=== PATIENT | male | born 1985 | race Caucasian/White ===

== ENCOUNTER → 2025-02-27 06:05 | Emergency (ER) | payer OTHER, SELFPAY ==
[2025-02-27 06:11] VITALS: BP 181/106; PULSE 111; RESP 22; TEMP 37.1; O2SAT 96; BMI 27.7
--- NOTE | 2025-02-27 06:14 | ED_ITS ---
HPI - General Adult General Chief complaint: Dental/Oral Stated complaint: SOB, Sore Throat Time Seen by Provider: 02/27/25 06:11 History of Present Illness HPI narrative: 39 year old male complains of 2 days duration sore throat, occasional dry cough, painful swallowing. No injury. Can handle secretions, can move neck, no change in voce quality. Denies left sided tooth problems, has left neck swelling. No hives, no itching, no swelling lips or tongue. Related Data Previous Rx's ?Medication ?Instructions ?Recorded amoxicillin 875 mg tablet 875 mg PO BID dental infecti on 10 02/27/25 days #20 tabs prednisone 20 mg tablet 40 mg (2 x 20 mg) PO DAILY 3 days 02/27/25 #10 tabs Allergies Allergy/AdvReac Type Severity Reaction Status Date / Time No Known Drug Allergies Allergy Verified 02/27/25 06:18 Patient History Social History Smoking Status: Current every day smoker Exam Narrative Exam Narrative: GENERAL: Well-developed patient, in mild distress. HEAD: Atraumatic. Normocephalic. EYES: Pupils equal round and reactive. Extraocular motions intact. No scleral icterus. No injection or drainage. ENT: Nose without bleeding, purulent drainage. Oropharyngeal exam remarkable for large red symmetrical tonsils with exudates. NECK: Trachea midline. Non tender. Moves neck well, normal phonation. CARDIOVASCULAR: Regular rate and rhythm without murmurs, gallops, or rubs. RESPIRATORY: Clear to auscultation. Breath sounds equal bilaterally. No wheezes, rales, or rhonchi. GASTROINTESTINAL: Abdomen soft, non-tender, nondistended. EXTREMITIES: No edema or joint tenderness. BACK: Nontender without deformity or crepitance. No flank tenderness. NEURO: AOx3. Motor functions grossly nonfocal. SKIN: No rash or erythema of visible areas Initial Vital Signs Initial Vital Signs: Vital Signs Temperature 98.8 F 02/27/25 06:11 Pulse Rate 111 H 02/27/25 06:11 Respiratory Rate 22 02/27/25 06:11 Blood Pressure 181/106 H 02/27/25 06:11 Pulse Oximetry 96 02/27/25 06:11 Oxygen Delivery Method Room Air 02/27/25 06:11 Course Orders Ordered: ED Orders 02/27/25 06:28 Strep Grp A by PCR Rapid Stat Throat Culture Stat Discontinued Medications Albuterol (Albuterol 2.5 Mg/3 Ml Neb (Adult)) 2.5 mg INH NOW ONE Stop: 02/27/25 06:13 Last Admin: 02/27/25 06:31 Dose: Not Given Documented By: ARPIT Amoxicillin (Amoxicillin 250 Mg Capsule) 1,000 mg PO NOW ONE Stop: 02/27/25 06:23 Last Admin: 02/27/25 06:30 Dose: 1,000 mg Documented By: ARPIT Prednisone (Prednisone 20 Mg Tablet) 60 mg PO NOW ONE Stop: 02/27/25 06:23 Last Admin: 02/27/25 06:30 Dose: 60 mg Documented By: ARPIT Tramadol HCl (Tramadol 50 Mg Prepack) 1 bottle MISC DIRECTED ONE Stop: 02/27/25 06:34 Last Admin: 02/27/25 06:41 Dose: 1 bottle Documented By: ARPIT Tramadol HCl (Tramadol 50 Mg Tablet) 100 mg PO NOW ONE Stop: 02/27/25 06:36 Last Admin: 02/27/25 06:41 Dose: 100 mg Documented By: ARPIT Vital Signs Vital signs: Vital Signs - 8 hr 02/27/25 06:11 02/27/25 06:46 02/27/25 07:45 Temperature 98.8 F Pulse Rate 111 H 93 H 105 H Respiratory Rate 22 19 17 Blood Pressure 181/106 H 158/93 H 162/99 H Pulse Oximetry 96 94 97 Oxygen Delivery Method Room Air Room Air Room Air Medical Decision Making Lab Data Labs: Lab Results 02/27/25 Range/Units 06:28 Group A Strep (PCR) Negative (Negative) MDM Narrative Medical decision making narrative: Sore throat with exudative tonsillitis on exam, able to swallow moving neck well. We will hold off on advanced imaging for now. Strep screen sent from triage. We will start empiric treatment regardless of strep screen given exudative tonsillitis changes on examination. Oral amoxicillin, oral prednisone. Prescription sent for further amoxicillin and prednisone to his pharmacy. Oral tramadol for additional pain control, also dispensed home pack tramadol to use next 1-2 days if needed. Recheck advised with PCP if not improving in the next couple of days. Return precautions discussed. Discharged home. Discharge Plan Departure Patient Disposition: Home Clinical Impression: Exudative tonsillitis Activity Restrictions/Additional Instructions: Sore throat increasing difficulty swallowing. On examination you have red enlarged tonsils that seems symmetrical at this time, with scant exudative purulent flex both sides. You seemed to be able to moving your neck pretty well. You have anterior cervical lymph nodes as well. You were able to open your jaw and control your secretions and swallow well at this time, with normal phonation voice sounds. We will start antibiotics based on the exudates presence on both erythematous tonsils. First dose amoxicillin given in the emergency department, further course of antibiotic prescription sent to your pharmacy. Steroid prednisone given to help control swelling symptoms, dose given by mouth in the emergency department, prescription for 3 more days sent to your pharmacy. Recheck symptoms with your regular doctor in the next couple of days. Take your antibiotic and steroid courses as prescribed. Drink plenty of fluids. Take Tylenol as needed for pain control. Tramadol home pack given if additional pain relief needed in the short term. Return to this/nearest emergency department for any change worsening symptoms or any concerns prior. Prescriptions: New prednisone 20 mg tablet 40 mg PO DAILY 3 Days Qty: 10 0RF amoxicillin 875 mg tablet 875 mg PO BID 10 Days Qty: 20 0RF Referrals: Andrew Olvera MD [Physician, Ear, Nose, Throat] Stand Alone Forms: Patient Portal/API, Work Release Note
[2025-02-27] MEDS: predniSONE 20 MG TABLET 60 MG PO (06:30)
[2025-02-27] MEDS: AMOXICILLIN 250 MG CAPSULE 1000 MG PO (06:30)
[2025-02-27] MEDS: TRAMADOL 50 MG PREPACK 1 BOTTLE MISC (06:41)
[2025-02-27] MEDS: TRAMADOL 50 MG TABLET 100 MG PO (06:41)
[2025-02-27 06:43] LABS: Strep Grp A by PCR Rapid Negative (Negative)
[2025-02-27 06:46] VITALS: BP 158/93; PULSE 93; RESP 19; O2SAT 94
[2025-02-27 07:45] VITALS: BP 162/99; PULSE 105; RESP 17; O2SAT 97
== END | disposition home or self-care (01) ==
PROVIDERS: Emergency Provider Emergency Medicine
DX: J03.90 Acute tonsillitis, unspecified (principal)
CPT/HCPCS: 87070; 87077; 87147; 87651; 99283

== ENCOUNTER 2025-03-03 01:55 | Emergency (ER) | payer OTHER, SELFPAY ==
[2025-03-03 02:05] VITALS: BP 151/100; PULSE 90; RESP 19; TEMP 36.9; O2SAT 97; BMI 27.7
--- NOTE | 2025-03-03 02:12 | DI.CT.S_ITS ---
PROCEDURE: CT SOFT TISSUE NECK W CON INDICATIONS: neck pain swelling TECHNIQUE: After the administration of intravenous contrast, 3.0 mm axial sections acquired from the sella to the aortic arch. 3 mm thick coronal and sagittal reformats were generated. For radiation dose reduction, the following was used: automated exposure control. COMPARISON: None. FINDINGS: Skull Base: The visualized intracranial contents, skull, and orbits are unremarkable. Visualized paranasal sinuses are clear. Pharynx and Larynx: Bilateral tonsillar hypertrophy and peritonsillar edema noted greater on the left. A suggestion of possible developing abscess on the left is vague and ill-defined measuring to 1.9 cm. Muscles and Fascial Planes: Fascial planes are well maintained. Lymph Nodes: Bulky bilateral inflammatory adenopathy greater on the left measures up to 1.8 cm at level 2A Vasculature: Unremarkable. Submandibular and Parotid Glands: Normal in size and attenuation. Thyroid: Unremarkable. No enlarged or calcified nodules. Bones: No acute fracture. No osteolytic or blastic lesion is evident. Normal bone mineralization. Lung Apices: The visualized lung apices are clear. IMPRESSION: Bilateral tonsillar hypertrophy greater on the left with surrounding peritonsillar edema. There is suggestion of vague possible developing abscess on the left. Associated inflammatory adenopathy. Note: This final report is concordant with the preliminary after-hours interpretation provided by [facility] Approved by: Peter Oliveira M.D. on 03/03/2025 at 8:29
--- NOTE | 2025-03-03 02:12 | ED_ITS ---
HPI - General Adult General Chief complaint: Upper Respiratory Symptoms Stated complaint: Severe tonsillitis. swelling in face and neck Time Seen by Provider: 03/03/25 02:03 History of Present Illness HPI narrative: 39-year-old male seen by me here on 02/27/2025 with exudative tonsillitis, strep screen was negative at that time, patient was given oral amoxicillin dose and prescription for amoxicillin sent to pharmacy. They apparently had trouble with filling the prescription due to lack of insurance company at said pharmacy, had prescription change to a different pharmacy, filled the prescription and took 1st outpatient was today. Increasing throat pain, increasing swelling to the left side. Painful swallowing. No change in voice. Related Data Previous Rx's ?Medication ?Instructions ?Recorded amoxicillin 875 mg tablet 875 mg PO BID dental infecti on 10 02/27/25 days #20 tabs amoxicillin 875 mg-potassium 1 tab PO BID #20 tabs 05/20 clavulanate 125 mg tablet hydrocodone 5 mg-acetaminophen 325 1 tab PO Q6H PRN pa in #10 tabs 03/03/25 mg tablet prednisone 20 mg tablet 60 mg (3 x 20 mg) PO DAILY 5 days 03/03/25 #15 tabs Allergies Allergy/AdvReac Type Severity Reaction Status Date / Time No Known Drug Allergies Allergy Verified 03/03/25 02:22 Patient History Social History Smoking Status: Current every day smoker Exam Narrative Exam Narrative: GENERAL: Well-developed patient, in mild distress. HEAD: Atraumatic. Normocephalic. EYES: Pupils equal round and reactive. Extraocular motions intact. No scleral icterus. No injection or drainage. ENT: Oropharynx with fgwu-[id number]-lfwb-right tonsillar redness, occasional flecks of purulent material seems decreased from previous visit. No palatal or uvular edema. Opens mouth well. Normal phonation. Some left submandibular area swelling non fluctuant. NECK: Trachea midline. Non tender CARDIOVASCULAR: Regular rate and rhythm without murmurs, gallops, or rubs. RESPIRATORY: Clear to auscultation. Breath sounds equal bilaterally. No wheezes, rales, or rhonchi. GASTROINTESTINAL: Abdomen soft, non-tender, nondistended. EXTREMITIES: No edema or joint tenderness. BACK: Nontender without deformity or crepitance. No flank tenderness. NEURO: AOx3. Motor functions grossly nonfocal SKIN: No rash or erythema of visible areas Initial Vital Signs Initial Vital Signs: Vital Signs Temperature 98.5 F 03/03/25 02:05 Pulse Rate 90 03/03/25 02:05 Respiratory Rate 19 03/03/25 02:05 Blood Pressure 151/100 H 03/03/25 02:05 Pulse Oximetry 97 03/03/25 02:05 Oxygen Delivery Method Room Air 03/03/25 02:05 Const General: cooperative Course Orders Ordered: ED Orders 03/03/25 02:12 CT soft tissue neck w con Stat 03/03/25 02:15 CBC Auto Diff [Complete Blood Count AUTO DIFF] Stat CMP [Comprehensive Metabolic Panel] Stat Discontinued Medications Hydrocodone Bitart/Acetaminophen (Hydrocodone/Acet 5/325 Prepack) 1 bottle MISC DIRECTED ONE Stop: 03/03/25 03:54 Last Admin: 03/03/25 03:57 Dose: 1 bottle Documented By: SCOUT Dexamethasone (Dexamethasone 10 Mg/Ml Vial) 10 mg IV NOW ONE Stop: 03/03/25 02:04 Last Admin: 03/03/25 02:26 Dose: 10 mg Documented By: SCOUT Clindamycin Phosphate (Cleocin) 900 mg in 50 mls @ 50 mls/hr IV NOW ONE Stop: 03/03/25 03:02 Last Admin: 03/03/25 02:47 Dose: Not Given Documented By: SCOUT Sodium Chloride (Normal Saline 0.9%) 1,000 mls @ 1,000 mls/hr IV BOLUS ONE Stop: 03/03/25 03:03 Last Infusion: 03/03/25 03:01 Dose: Infused Documented By: Admin: 03/03/25 02:26 Dose: 1,000 mls/hr Documented By: SCOUT Ampicillin Sodium/Sulbactam (Sodium 3 gm/ Sodium Chloride) 100 mls @ 200 mls/hr IV NOW ONE Stop: 03/03/25 02:16 Last Infusion: 03/03/25 03:30 Dose: Infused Documented By: Infusion: 03/03/25 03:14 Dose: 200 mls/hr Documented By: Infusion: 03/03/25 03:01 Dose: 0 mls/hr Documented By: Admin: 03/03/25 02:38 Dose: 200 mls/hr Documented By: SCOUT Ketorolac Tromethamine (Ketorolac 30 Mg/Ml Vial) 15 mg IV NOW ONE Stop: 03/03/25 02:05 Last Admin: 03/03/25 02:26 Dose: 15 mg Documented By: SCOUT Vital Signs Vital signs: Vital Signs - 8 hr 03/03/25 02:05 03/03/25 02:42 03/03/25 03:11 Temperature 98.5 F Pulse Rate 90 91 H 106 H Respiratory Rate 19 Blood Pressure 151/100 H Pulse Oximetry 97 97 92 Oxygen Delivery Method Room Air 03/03/25 03:12 03/03/25 03:12 03/03/25 03:30 Temperature Pulse Rate 98 H 94 H Respiratory Rate Blood Pressure 181/87 H Pulse Oximetry 96 95 Oxygen Delivery Method Room Air 03/03/25 03:30 Temperature Pulse Rate Respiratory Rate Blood Pressure 165/86 H Pulse Oximetry Oxygen Delivery Method Medical Decision Making Lab Data Lab results reviewed: Yes I reviewed the patient's lab results. Lab results narrative: White blood cell count 94804 600, hemoglobin 15.4, platelets adequate. Glucose 110. Renal function normal. Electrolytes normal. Serum CO2 25 normal. Alkaline phosphatase slight elevation, other liver functions normal. 03/03/25 02:15 03/03/25 02:15 Labs: Lab Results 03/03/25 Range/Units 02:15 WBC 17.6 H (4.5-11.0) X10^3/uL RBC 4.88 (4.5-5.9) X10^6/uL Hgb 15.4 (13.5-17.5) g/dL Hct 43.9 (41-53) % MCV 90.1 (80-100) fL MCH 31.5 (26-34) PG MCHC 35.0 (30-36) % RDW 12.5 (11.6-14.8) % Plt Count 364 (150-400) X10^3/uL Neut % (Auto) 66.9 (50-75) % Lymph % (Auto) 17.7 L (25-40) % Lynn % (Auto) 10.6 (3-14) % Eos % (Auto) 4.1 H (2-4) % Baso % (Auto) 0.7 (0-2) % Neut # (Auto) 80721 H (6620-7718) /uL Lymph # (Auto) 3100 (0845-8241) /uL Lynn # (Auto) 1900 H (0-900) /uL Eos # (Auto) 700 H (0-450) /uL Baso # (Auto) 100 (0-100) /uL Sodium 137 (137-145) mmol/L Potassium 3.8 (3.4-5.1) mmol/L Chloride 102 (98-107) mmol/L Carbon Dioxide 25 (22-32) mmol/L BUN 6 L (9-20) mg/dL Creatinine 0.60 L (0.66-1.25) mg/dL Estimated GFR > 60 (>60) mL/min BUN/Creatinine Ratio 10.0 (6-22) Glucose 110 H (70-99) mg/dL Calcium 9.2 (8.4-10.2) mg/dL Total Bilirubin 0.9 (0.2-1.3) mg/dL AST 38 (17-59) IU/L ALT 40 (<50) IU/L Alkaline Phosphatase 127 H (38-126) U/L Total Protein 7.7 (6.3-8.2) g/dL Albumin 4.3 (3.5-5.0) g/dL Globulin 3.4 (1.7-4.1) g/dL Albumin/Globulin Ratio 1.3 (1.0-2.8) MDM Narrative Medical decision making narrative: 39-year-old male seen here 02/27/25 with exudative tonsillitis, strep screen negative, throat culture sent, was given oral amoxicillin dose at the time of initial evaluation, had delay in filling prescription due to insurance coverage issues, started antibiotics yesterday 03/01/2025. Increasing throat pain, having difficulty with secretions due to pain. Swelling and qjib-pkgzsys-mdjo-right side. Normal phonation, can rotate neck. No stridor. Throat culture from 02/27/2025, Streptococcus C species noted. White blood cell count 37297, hemoglobin normal. IV Unasyn, Decadron, Toradol, IV fluid bolus. CT soft tissue neck study ordered. CT neck soft tissue. Impressions: ?Bilateral tonsillar enlargement oftz-qvypeij-lvef-right with rim enhancing left peritonsillar abscess and narrowing of the airway within this region with associated phlegmonous change.See tele radiology report. Patient having considerable early symptomatic improvement. We will contact otolaryngology Dr. Olvera on-call. Case discussed with otolaryngology Dr. Olvera, who advises further treatment as an outpatient for now, broad-spectrum Augmentin antibiotic, prednisone 60 mg daily x5 days. Can see patient in close follow up in his office. Might later need tonsillectomy, can further discussed after resolution of acute illness. Home pack hydrocodone/acetaminophen, prescription sent for #10 tabs to use as needed for analgesia. Patient agreeable with this plan. Significantly improved. Prescription sent. Encouraged to take antibiotics and steroids listed above. Follow up with Otolaryngology. Return precautions discussed. Home with family. Discharge Plan Departure Patient Disposition: Home Clinical Impression: Peritonsillar abscess, Streptococcal tonsillitis Activity Restrictions/Additional Instructions: Ongoing sore throat. Initial evaluation here in the emergency department 02/27/2025 with strep screen that was negative, but exudative tonsillitis by clinical exam, amoxicillin dose was given in the emergency department. 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 You have worsening of the sore throat symptoms. On examination you still have considerable redness left side greater than right side on examination. Throat culture from previous visit showed streptococcal type C species (not type A that is detected by the rapid strep screen). IV steroid Decadron, anti-inflammatory IV Toradol, IV fluids, IV Unasyn antibiotic all given. You had significant rapid improvement in your symptoms. CT soft tissue neck did show presence of inflammatory infectious changes in the tonsillar region, and on the left palatine tonsil there is a abscess 1.9 x 1.9 cm. Case was discussed with Otolaryngology Dr. Olvera on-call, with reading of the CT results. He was encouraged by your rapid clinical improvement. He suggests outpatient management for now with high dose prednisone for 5 days, and broader spectrum antibiotic Augmentin in place of intended amoxicillin. These prescriptions were sent to your pharmacy. Fill the prescriptions later this morning and start the medicines as soon as possible, take the medications as directed. Follow up with Dr. Olvera in his clinic early next week. Return earlier to this/nearest emergency department for any change worsening symptoms or any concerns prior. You might also have discussion with Dr. Olvera in follow up regarding tonsillectomy surgery given that you were able to form an abscess with inflammatory infectious changes. Prescriptions: New amoxicillin-pot clavulanate 875-125 mg tablet 1 tab PO BID Qty: 20 0RF prednisone 20 mg tablet 60 mg PO DAILY 5 Days Qty: 15 0RF hydrocodone-acetaminophen 5-325 mg tablet 1 tab PO Q6H PRN (Reason: pain) Qty: 10 0RF No Action amoxicillin 875 mg tablet 875 mg PO BID 10 Days Qty: 20 0RF Referrals: Andrew Olvera MD [Physician, Ear, Nose, Throat] Stand Alone Forms: Patient Portal/API
[2025-03-03 02:25] LABS: Add Manual Diff / Slide Review NO; Basophils Absolute Auto 100 /uL (0-100); Basophils Percent Auto 0.7 % (0-2); Eosinophils Absolute Auto 700 /uL (0-450); Eosinophils Percent Auto 4.1 % (2-4); Hematocrit 43.9 % (41-53); Hemoglobin 15.4 g/dL (13.5-17.5); Lymphocytes Absolute Auto 3100 /uL (1100-4500); Lymphocytes Percent Auto 17.7 % (25-40); Mean Corpuscular Hemoglobin 31.5 PG (26-34); Mean Corpuscular Volume 90.1 fL (80-100); Monocytes Absolute Auto 1900 /uL (0-900); Monocytes Percent Auto 10.6 % (3-14); Neutrophils Absolute Auto 11800 /uL (1500-7000); Neutrophils Percent Auto 66.9 % (50-75); Platelet Count 364 X10^3/uL (150-400); Red Blood Cell Count 4.88 X10^6/uL (4.5-5.9); Red Cell Distribution Width 12.5 % (11.6-14.8); White Blood Cell Count 17.6 X10^3/uL (4.5-11.0)
[2025-03-03] MEDS: DEXAMETHASONE 10 MG/ML VIAL IV (02:26)
[2025-03-03] MEDS: KETOROLAC 30 MG/ML VIAL 15 MG IV (02:26)
[2025-03-03] MEDS: SODIUM CHLORIDE 0.9% 1,000 ML 1000 ML IV (02:26)
[2025-03-03] MEDS: AMPICILLIN/SULBACTAM 3 GM 3 GM in SODIUM CHLORIDE 0.9% 100 ML IV (02:38)
[2025-03-03 02:42] VITALS: PULSE 91; O2SAT 97
[2025-03-03 02:51] LABS: Alanine Aminotransferase 40 IU/L (<50); Albumin 4.3 g/dL (3.5-5.0); Albumin Globulin Ratio 1.3 (1.0-2.8); Alkaline Phosphatase 127 U/L (38-126); Aspartate Aminotransferase 38 IU/L (17-59); Bilirubin Total 0.9 mg/dL (0.2-1.3); Blood Urea Nitrogen 6 mg/dL (9-20); Calcium 9.2 mg/dL (8.4-10.2); Carbon Dioxide 25 mmol/L (22-32); Chloride 102 mmol/L (98-107); Estimated Glomerular Filt Rate > 60 mL/min (>60); Globulin 3.4 g/dL (1.7-4.1); Glucose 110 mg/dL (70-99); HEMOLYSIS < 15 (0-50); Potassium 3.8 mmol/L (3.4-5.1); Sodium 137 mmol/L (137-145); Total Protein 7.7 g/dL (6.3-8.2)
[2025-03-03 03:11] VITALS: PULSE 106; O2SAT 92
[2025-03-03 03:12] VITALS: BP 181/87; PULSE 98; O2SAT 96
[2025-03-03 03:30] VITALS: BP 165/86; PULSE 94; O2SAT 95
[2025-03-03] MEDS: HYDROCODONE/ACET 5/325 PREPACK 1 BOTTLE MISC (03:57)
== END 2025-03-03 04:04 | disposition home or self-care (01) ==
PROVIDERS: Emergency Provider Emergency Medicine
DX: J03.00 Acute streptococcal tonsillitis, unspecified (principal)
CPT/HCPCS: 36415; 70491; 80053; 85025; 96365; 96375; 99284; J0295; J1100; J1885; Q9967